=== PATIENT | male | born 1950 | race Caucasian/White ===

== ENCOUNTER 2019-12-15 11:53 | Observation (INO) | payer MEDICARE, BC ==
[2019-12-15] MEDS ORDERED: Sodium Chloride 0.9% 10 ML Syringe FLUSH PRN (12:25)
[2019-12-15] MEDS ORDERED: Atropine 0.1 MG/ML 10 ML Syringe IVPUSH PRN (12:33)
[2019-12-15] MEDS ORDERED: EPINEPHrine 1:10,000 1 MG/10 ML Syringe IVPUSH PRN (12:33)
[2019-12-15] MEDS ORDERED: Nitroglycerin 0.4 MG Tab.SL SL PRN (12:33)
[2019-12-15] MEDS ORDERED: Lidocaine 2% 100 MG/5 ML Syringe IVPUSH PRN (12:33)
--- NOTE | 2019-12-15 13:04 | CR ---
[id number] RAD/RAD Chest PA And Lateral EXAM: RAD Chest PA And Lateral INDICATION: CHEST PAIN, RULE OUT AK. COMPARISON: None. DISCUSSION: Cardiomediastinal silhouette is normal in size and contour. No infiltrate, effusion, pneumothorax, or edema. IMPRESSION: No acute cardiopulmonary abnormality. Vipul Sauceda DO 12/15/19 [id number] Thank you for allowing us to participate in the care of your patient.
[2019-12-15 13:42] LABS: ANION GAP 17.6 mmol/L (5-15); CHLORIDE,CL 103 mmol/L (98-115); SODIUM,NA 142 mmol/L (136-145)
[2019-12-15] MEDS ORDERED: Acetaminophen 500 MG Tab PO PRN (18:02)
[2019-12-15] MEDS: Escitalopram 10 MG Tab PO SCH (20:41)
[2019-12-16] MEDS: Hydrochlorothiazide 12.5 MG Cap PO SCH (08:02)
[2019-12-16] MEDS: Pantoprazole 40 MG Tab.CR PO SCH (08:02)
[2019-12-16] MEDS: Lisinopril 20 MG Tab PO SCH (08:02)
[2019-12-16] MEDS ORDERED: Ketorolac 30 MG/ML SDV IVPUSH ONE (12:21)
[2019-12-16] MEDS ORDERED: Nitroglycerin 2% Oint 1 GM UD Packet TOP ONE (14:00)
[2019-12-16] MEDS: Isosorbide Mononitrate 30 MG Tab.ER PO SCH (14:23)
[2019-12-16] MEDS ORDERED: Nitroglycerin 2% Oint 1 GM UD Packet TOP SCH (20:30)
[2019-12-16] MEDS: Escitalopram 10 MG Tab PO SCH (21:34)
[2019-12-17] MEDS: Nitroglycerin 2% Oint 1 GM UD Packet TOP SCH ×2 (03:43→09:38)
[2019-12-17] MEDS: Lisinopril 20 MG Tab PO SCH (09:13)
[2019-12-17] MEDS: Isosorbide Mononitrate 30 MG Tab.ER PO SCH (09:13)
[2019-12-17] MEDS: Pantoprazole 40 MG Tab.CR PO SCH (09:13)
[2019-12-17] MEDS: Hydrochlorothiazide 12.5 MG Cap PO SCH (09:13)
--- NOTE | 2019-12-17 09:25 | PCM.PN ---
- General Info Date of Service: 12/16/19 Functional Status: Reports: Tolerating Diet, Ambulating, Urinating. Denies: Pain Controlled, New Symptoms - Review of Systems General: Denies: Fever, Weakness, Fatigue HEENT: Reports: No Symptoms Pulmonary: Reports: No Symptoms Cardiovascular: Reports: Chest Pain, Orthopnea. Denies: Palpitations, Dyspnea on Exertion, PND, Edema, Lightheadedness Gastrointestinal: Reports: No Symptoms Genitourinary: Reports: No Symptoms Musculoskeletal: Reports: No Symptoms Skin: Reports: No Symptoms Neurological: Reports: No Symptoms Psychiatric: Reports: No Symptoms - Patient Data Vitals - Most Recent: Last Vital Signs Temp 96.8 F 12/17/19 06:57 Pulse 71 12/17/19 06:57 Resp 16 12/17/19 06:57 BP 135/64 12/17/19 09:13 Pulse Ox 95 12/17/19 06:57 Weight - Most Recent: 223 lb 9.6 oz I&O - Last 24 Hours: Intake & Output 12/16/19 12/17/19 12/17/19 22:59 06:59 14:59 Intake Total 200 100 Balance 200 100 Lab Results Last 24 Hours: Laboratory Results - last 24 hr 12/16/19 Range/Units 07:08 Triglycerides 98 (30-150) mg/dL Cholesterol 187 (100-199) mg/dL LDL Cholesterol, Calc 122 H (0-100) mg/dL HDL Cholesterol 45 (40-60) mg/dL Med Orders - Current: Current Medications Acetaminophen (Tylenol Extra Strength) 1,000 mg PO BID PRN PRN Reason: Pain Atropine Sulfate (Atropine 0.1 Mg/Ml) 0 mg IVPUSH ASDIRECTED PRN PRN Reason: Heart. Dapsone (Dapsone) 150 mg PO DAILY [facility] Last Admin: 12/16/19 08:07 Dose: Not Given Epinephrine HCl (Epinephrine 1:10,000) 1 mg IVPUSH ASDIRECTED PRN PRN Reason: Heart. Escitalopram Oxalate (Lexapro) 10 mg PO BEDTIME [facility] Last Admin: 12/16/19 21:34 Dose: 10 mg Hydrochlorothiazide (Hydrochlorothiazide) 12.5 mg PO DAILY [facility] Last Admin: 12/17/19 09:13 Dose: 12.5 mg Isosorbide Mononitrate (Imdur) 60 mg PO DAILY [facility] Last Admin: 12/17/19 09:13 Dose: 60 mg Lidocaine HCl (Xylocaine 2%) 0 mg IVPUSH ASDIRECTED PRN PRN Reason: Heart. Lisinopril (Prinivil) 20 mg PO DAILY [facility] Last Admin: 12/17/19 09:13 Dose: 20 mg Nebivolol (Bystolic) 5 mg PO DAILY [facility] Last Admin: 12/16/19 08:07 Dose: Not Given Nitroglycerin (Nitrostat) 0.4 mg SL ASDIRECTED PRN PRN Reason: Heart. Last Admin: 12/16/19 09:13 Dose: 0.4 mg Nitroglycerin (Nitro-Bid 2%) 1 gm TOP Q6H [facility] Last Admin: 12/17/19 03:43 Dose: 1 gm Pantoprazole Sodium (Protonix) 40 mg PO DAILY [facility] Last Admin: 12/17/19 09:13 Dose: 40 mg Sodium Chloride (Saline Flush) 10 ml FLUSH Q8HR PRN PRN Reason: keep vein open Last Admin: 12/16/19 08:04 Dose: 10 ml Discontinued Medications Ketorolac Tromethamine (Toradol) 15 mg IVPUSH ONETIME ONE Stop: 12/16/19 12:22 Last Admin: 12/16/19 12:35 Dose: 15 mg Nitroglycerin (Nitro-Bid 2%) 1 gm TOP ONETIME ONE Stop: 12/16/19 14:01 Last Admin: 12/16/19 14:23 Dose: 1 gm Nitroglycerin (Nitro-Bid 2%) 1 gm TOP Q6H [facility] Last Admin: 12/16/19 21:34 Dose: 1 gm - Exam Quality Assessment: No: Supplemental Oxygen General: Alert, Oriented, Cooperative, No Acute Distress Neck: No JVD Lungs: Clear to Auscultation, Normal Respiratory Effort, Other (reproducible chest wall pain. ). No: Crackles Cardiovascular: Regular Rate, Regular Rhythm GI/Abdominal Exam: Soft (Male) Exam: Deferred Back Exam: No: CVA Tenderness (L), CVA Tenderness (R) Extremities: No Pedal Edema Peripheral Pulses: 2+: Radial (L), Radial (R) Skin: Warm, Dry, Intact Psy/Mental Status: Alert, Normal Affect, Normal Mood. No: Depressed Sepsis Event Note - Evaluation Sepsis Screening Result: No Definite Risk - Focused Exam Vital Signs: Vital Signs Temp Pulse Resp BP BP BP Pulse Ox 12/17/19 09:13 135/64 12/17/19 06:57 96.8 F 71 16 123/65 95 12/17/19 03:00 96.8 F 64 16 111/62 96 12/16/19 22:50 96.7 F 61 20 109/61 94 L Date Exam was Performed: 12/17/19 Time Exam was Performed: 10:04 - Problem List Review Problem List Initiated/Reviewed/Updated: Yes - My Orders Last 24 Hours: My Active Orders 12/16/19 09:00 Dapsone 150 mg PO DAILY Nebivolol [Bystolic] 5 mg PO DAILY Pantoprazole [ProTONIX] 40 mg PO DAILY hydroCHLOROthiazide 12.5 mg PO DAILY lisinopriL [Prinivil] 20 mg PO DAILY 12/16/19 14:00 Isosorbide Mononitrate [Imdur] 60 mg PO DAILY 12/17/19 03:00 Nitroglycerin [Nitro-Bid 2%] 1 gm TOP Q6H 12/17/19 09:19 Ready for Discharge [RC] PER UNIT ROUTINE - Plan Plan:: History summary A pleasant 69-year-old obese gentleman was admitted by Gail Castañeda NP from an [facility] when he had came in due to slightly elevated blood pressure at 168 systolically along with 2 to 3-day history of dull 2/10 substernal/anterior nonradiating chest wall pain. Does admit he had been more active exertionally lately moving snow likely contributable. He has no significant cardiac history other than hyperlipidemia and hypertension and back in June he was discontinued from his ELEN inhibitor/HCTZ to what he says "they said it was hard on my kidneys" and subsequently placed on 5 mg Bystolic. PPI therapy at one point he thought it was GERD-like symptoms. non Smoker. EKG clinic was reviewed by myself no ST morphology QTC <400. Nitro 0.4 SL given x 1 dose with relief of symptoms. ASA 324mg chewable given x 1. Primary Hospital problems Chest pain, likely MSK, Toradol Rule out MO, this has been ruled out, Hypertension, increase Bystolic to 10 mg daily Disposition/overall plan --Continue observation stay --Increase Bystolic, Toradol, continue with telemetry, ambulate in halls, lipids --Although muscular skeletal related, likely could benefit from cardiology referral, C/S placed. --MHS score 2; doubtful of limited flow disease, however he does have an intermediate risk factors of CAD and may likely benefit from outpatient stress testing
--- NOTE | 2019-12-17 10:04 | PCM.DCSUM1 ---
Discharge Summary - Hospital Course Diagnosis: Stroke: No - Discharge Data Discharge Date: 12/17/19 Discharge Disposition: Home, Self-Care 01 Condition: Good - Referral to Home Health Primary Care Physician: PCP Not In Area - Patient Instructions Diet: Heart Healthy Diet Activity: As Tolerated, No Lifting Over 20 Pounds, No Strenuous Activities Driving: May Drive Today Showering/Bathing: March Shower Notify Provider of: Increased Pain - Discharge Plan *PRESCRIPTION DRUG MONITORING PROGRAM REVIEWED*: Not Applicable *COPY OF PRESCRIPTION DRUG MONITORING REPORT IN PATIENT [facility]: Not Applicable Prescriptions/Med Rec: Aspirin [Adult Low Dose Aspirin EC] 81 mg PO DAILY #30 tablet. Nebivolol HCl [Bystolic] 10 mg PO DAILY #30 tablet Home Medications: Home Meds Acetaminophen 1,000 mg PO BID PRN 12/15/19 [History] Dapsone 150 mg PO DAILY 12/15/19 [History] Escitalopram [Lexapro] 10 mg PO BEDTIME 12/15/19 [History] L.acidoph,Paracasei, B.lactis [Probiotic] 2 cap DAILY 12/15/19 [History] Lisinopril/Hydrochlorothiazide [Zestoretic 20-12.5 mg Tablet] 1 each PO DAILY [History] Pantoprazole [ProTONIX] 40 mg PO DAILY 12/15/19 [History] Nebivolol HCl [Bystolic] 10 mg PO DAILY #30 tablet 12/16/19 [Rx] Aspirin [Adult Low Dose Aspirin EC] 81 mg PO DAILY #30 tablet. 12/17/19 [Rx] Referrals: Gail Castañeda TRANSPORT OPERATIONS INSPECTOR [Nurse Practitioner] - (Next week or at anybody else in [place]) - Discharge Summary/Plan Comment DC Time >30 min.: Yes Discharge Summary/Plan Comment: Final diagnosis Chest wall pain, musculoskeletal etiology Hypertension, suboptimal Obesity, History summary 69-year-old obese gentleman was admitted by Gail Castañeda NP from an [facility] when he had came in due to slightly elevated blood pressure at 168 systolically along with 2 to 3-day history of dull 2/10 substernal/anterior nonradiating chest wall pain. Does admit he had been more active exertionally lately moving snow likely contributable. He has no significant cardiac history other than hyperlipidemia and hypertension and back in June he was discontinued from his ELEN inhibitor/HCTZ to what he says "they said it was hard on my kidneys" and subsequently placed on 5 mg Bystolic. PPI therapy at one point he thought it was GERD-like symptoms. non Smoker. EKG clinic was reviewed by myself no ST morphology QTC <400. Prehospital medication included nitro 0.4 SL given x 1 dose with relief of symptoms. ASA 324mg chewable given x 1. Hospital course Patient was placed on telemetry, no ST morphology noted, all cardio biomarkers were normal, have dull 2-3 reproducible chest wall pain in which ketorolac was given with resolution. He was ambulated aggressively in the can prior to discharge no shortness of breath no chest pain. Blood pressure normalized with increased dose of Bystolic. Lipids: LDL 122 HDL 45 CHO 187 Triglycerides 98 Medication changes/adjustments upon discharge --Bystolic increase from 5 mg to 10 mg p.o. daily --ASA 81 mg daily for primary CVD prevention (likely short-term) Disposition/overall plan --Discharge from observation to self-long-term --Follow-up in [facility], specific instructions were given regarding diet, activity level, --MHS score 2; doubtful of limited flow disease, however he does have an intermediate risk factors of CAD and may likely benefit from outpatient stress testing --Cardiology C/S placed in [facility]> --Follow-up provider to consider statin therapy - General Info Functional Status: Reports: Pain Controlled - Review of Systems General: Reports: No Symptoms HEENT: Reports: No Symptoms Pulmonary: Reports: No Symptoms Cardiovascular: Reports: No Symptoms Gastrointestinal: Reports: No Symptoms Genitourinary: Reports: No Symptoms Musculoskeletal: Reports: No Symptoms Skin: Reports: No Symptoms Neurological: Reports: No Symptoms Psychiatric: Reports: No Symptoms - Patient Data Vitals - Most Recent: Last Vital Signs Temp 96.8 F 12/17/19 06:57 Pulse 71 12/17/19 06:57 Resp 16 12/17/19 06:57 BP 135/64 12/17/19 09:13 Pulse Ox 95 12/17/19 06:57 Weight - Most Recent: 223 lb 9.6 oz I&O - Last 24 hours: Intake & Output 12/16/19 12/17/19 12/17/19 22:59 06:59 14:59 Intake Total 200 100 Balance 200 100 Lab Results - Last 24 hrs: Laboratory Results - last 24 hr 12/16/19 Range/Units 07:08 Triglycerides 98 (30-150) mg/dL Cholesterol 187 (100-199) mg/dL LDL Cholesterol, Calc 122 H (0-100) mg/dL HDL Cholesterol 45 (40-60) mg/dL Med Orders - Current: Current Medications Acetaminophen (Tylenol Extra Strength) 1,000 mg PO BID PRN PRN Reason: Pain Atropine Sulfate (Atropine 0.1 Mg/Ml) 0 mg IVPUSH ASDIRECTED PRN PRN Reason: Heart. Dapsone (Dapsone) 150 mg PO DAILY [facility] Last Admin: 12/16/19 08:07 Dose: Not Given Epinephrine HCl (Epinephrine 1:10,000) 1 mg IVPUSH ASDIRECTED PRN PRN Reason: Heart. Escitalopram Oxalate (Lexapro) 10 mg PO BEDTIME [facility] Last Admin: 12/16/19 21:34 Dose: 10 mg Hydrochlorothiazide (Hydrochlorothiazide) 12.5 mg PO DAILY [facility] Last Admin: 12/17/19 09:13 Dose: 12.5 mg Isosorbide Mononitrate (Imdur) 60 mg PO DAILY [facility] Last Admin: 12/17/19 09:13 Dose: 60 mg Lidocaine HCl (Xylocaine 2%) 0 mg IVPUSH ASDIRECTED PRN PRN Reason: Heart. Lisinopril (Prinivil) 20 mg PO DAILY [facility] Last Admin: 12/17/19 09:13 Dose: 20 mg Nebivolol (Bystolic) 5 mg PO DAILY [facility] Last Admin: 12/16/19 08:07 Dose: Not Given Nitroglycerin (Nitrostat) 0.4 mg SL ASDIRECTED PRN PRN Reason: Heart. Last Admin: 12/16/19 09:13 Dose: 0.4 mg Nitroglycerin (Nitro-Bid 2%) 1 gm TOP Q6H [facility] Last Admin: 12/17/19 09:38 Dose: 1 gm Pantoprazole Sodium (Protonix) 40 mg PO DAILY [facility] Last Admin: 12/17/19 09:13 Dose: 40 mg Sodium Chloride (Saline Flush) 10 ml FLUSH Q8HR PRN PRN Reason: keep vein open Last Admin: 12/16/19 08:04 Dose: 10 ml Discontinued Medications Ketorolac Tromethamine (Toradol) 15 mg IVPUSH ONETIME ONE Stop: 12/16/19 12:22 Last Admin: 12/16/19 12:35 Dose: 15 mg Nitroglycerin (Nitro-Bid 2%) 1 gm TOP ONETIME ONE Stop: 12/16/19 14:01 Last Admin: 12/16/19 14:23 Dose: 1 gm Nitroglycerin (Nitro-Bid 2%) 1 gm TOP Q6H [facility] Last Admin: 12/16/19 21:34 Dose: 1 gm - Exam General: Reports: Alert, Oriented Neck: Reports: Supple Lungs: Reports: Clear to Auscultation, Normal Respiratory Effort Cardiovascular: Reports: Regular Rate, Regular Rhythm GI/Abdominal Exam: Normal Bowel Sounds, Soft Extremities: No Pedal Edema Psy/Mental Status: Reports: Alert, Normal Affect, Normal Mood
== END 2019-12-17 11:15 | disposition home or self-care (01) ==
LOC: KA.MS 11:59
PROVIDERS: ADMIT Nurse Practitioner Family; ATTEND Nurse Practitioner Family
DX: R07.2 Precordial pain (principal); I10 Essential (primary) hypertension; E78.00 Pure hypercholesterolemia, unspecified; K21.9 Gastro-esophageal reflux disease without esophagitis; M10.9 Gout, unspecified; E78.5 Hyperlipidemia, unspecified; M19.90 Unspecified osteoarthritis, unspecified site; Z88.8 Allergy status to other drugs, medicaments and biological substances; Z88.0 Allergy status to penicillin; Z91.040 Latex allergy status; Z91.018 Allergy to other foods; Z79.899 Other long term (current) drug therapy
CPT/HCPCS: 36415; 71046; 80053; 80061; 82553; 84484; 85025; 96374; A9270-GY; G0378; J1885

== ENCOUNTER 2021-01-31 19:30 | Emergency (ER) | payer MEDICARE, BC ==
[2021-01-31] MEDS ORDERED: Ketorolac 60 MG/2 ML SDV IM ONE (20:14)
--- NOTE | 2021-01-31 20:14 | EDM.PDOC ---
ED HPI GENERAL MEDICAL PROBLEM - General Chief Complaint: General Stated Complaint: BILATERAL FOOT PAIN Time Seen by Provider: 01/31/21 19:45 Source of Information: Reports: Patient History Limitations: Reports: No Limitations - History of Present Illness INITIAL COMMENTS - FREE TEXT/NARRATIVE: 70 YO WM PRESENTS TO ER COMPLAINING OF BILATERAL FOOT PAIN WHICH BEGAN YESTERDAY. PT WAS SEEN IN THE CLINIC TODAY AND DIAGNOSED WITH GOUT. PT WAS SENT HOME ON PREDNISONE AND ALLOPURINOL BUT STATES HE DIDN'T TAKE EITHER MEDICATIONS. PT REPORTS POSSIBLE ALLERGY TO ALLOPURINOL (RASH) IN THE PAST. PT STATES HE FORGOT TO TAKE HIS PREDNISONE. PT STATES RIGHT FOOT IS WORSE THAN LEFT FOOT. PT WITH DIFFICULTY AMBULATING DUE TO PAIN. PT REPORTS SWELLING AND WARMTH TO FEET BILATERALLY. PT DENIES FEVER/CHILLS, NO KNOWN INJURY, OR REDNESS TO FEET NOTED. PT ESSENTIALLY HERE FOR PAIN MEDICATION. Onset Date: 01/30/21 Duration: Day(s): (2) Location: Reports: Lower Extremity, Left, Lower Extremity, Right Quality: Reports: Ache Severity: Moderate Improves with: Reports: Rest Worsens with: Reports: Movement Associated Symptoms: Reports: No Other Symptoms. Denies: Fever/Chills, Weakness bilater. feet Pain Score (Numeric/FACES): 6 - Related Data Allergies Allergy/AdvReac Type Severity Reaction Status Date / Time allopurinol Allergy Other Verified 12/15/19 13:28 gluten Allergy Other Verified 12/15/19 13:28 latex Allergy Other Verified 12/15/19 13:28 Penicillins Allergy Other Verified 12/15/19 13:28 Home Meds: Home Meds Acetaminophen 1,000 mg PO BID PRN 12/15/19 [History] Dapsone 150 mg PO DAILY 12/15/19 [History] Escitalopram [Lexapro] 10 mg PO BEDTIME 12/15/19 [History] L.acidoph,Paracasei, B.lactis [Probiotic] 2 cap DAILY 12/15/19 [History] Lisinopril/Hydrochlorothiazide [Zestoretic 20-12.5 mg Tablet] 1 each PO DAILY 12/15/19 [History] Pantoprazole [ProTONIX] 40 mg PO DAILY 12/15/19 [History] Nebivolol HCl [Bystolic] 10 mg PO DAILY #30 tablet 01/22/20 [Rx] Aspirin [Adult Low Dose Aspirin EC] 81 mg PO DAILY #30 tablet. 12/17/19 [Rx] traMADol [Ultram] 50 mg PO Q6H PRN #15 tab 01/31/21 [Rx] Past Medical History HEENT History: Reports: Impaired Vision Cardiovascular History: Reports: Hypertension Gastrointestinal History: Reports: Celiac Disease Musculoskeletal History: Reports: Arthritis, Gout Psychiatric History: Reports: Depression Endocrine/Metabolic History: Reports: Obesity/BMI 30+ Dermatologic History: Reports: Eczema, Other (See Below) Other Dermatologic History: scabs r/t celiac - Infectious Disease History Infectious Disease History: Reports: Chicken Pox, Measles - Past Surgical History GI Surgical History: Reports: Appendectomy Musculoskeletal Surgical History: Reports: Carpal Tunnel, Other (See Below) Other Musculoskeletal Surgeries/Procedures:: R rotator cuff, mihir carpal tunnel Social & Family History - Tobacco Use Tobacco Use Status *Q: Never Tobacco User - Caffeine Use Caffeine Use: Reports: Soda - Alcohol Use Days Per Week of Alcohol Use: 2 Number of Drinks Per Day: 1 Total Drinks Per Week: 2 - Recreational Drug Use Recreational Drug Use: No ED ROS GENERAL - Review of Systems Review Of Systems: See Below Constitutional: Reports: No Symptoms HEENT: Reports: No Symptoms Respiratory: Reports: No Symptoms Cardiovascular: Reports: No Symptoms Endocrine: Reports: No Symptoms GI/Abdominal: Reports: No Symptoms : Reports: No Symptoms Musculoskeletal: Reports: Foot Pain Skin: Reports: No Symptoms Neurological: Reports: No Symptoms Psychiatric: Reports: No Symptoms Hematologic/Lymphatic: Reports: No Symptoms Immunologic: Reports: No Symptoms ED EXAM, GENERAL - Physical Exam Exam: See Below Exam Limited By: No Limitations General Appearance: Alert, WD/WN, No Apparent Distress Head: Atraumatic, Normocephalic Neck: Normal Inspection, Supple, Non-Tender, Full Range of Motion Respiratory/Chest: No Respiratory Distress, Lungs Clear, Normal Breath Sounds, No Accessory Muscle Use, Chest Non-Tender Cardiovascular: Normal Peripheral Pulses, Regular Rate, Rhythm, No Edema, No Gallop, No JVD, No Murmur, No Rub GI/Abdominal: Normal Bowel Sounds, Soft, Non-Tender, No Organomegaly, No Distention, No Abnormal Bruit, No Mass Back Exam: Normal Inspection, Full Range of Motion, NT Extremities: Joint Swelling, Increased Warmth (RIGHT GREAT TOE) Neurological: Alert, Oriented, CN II-XII Intact, Normal Cognition, No Motor/Sensory Deficits Psychiatric: Normal Affect, Normal Mood Skin Exam: Warm, Dry, Intact, Normal Color, No Rash Course - Vital Signs Last Recorded V/S: Last Vital Signs Temp 98.3 F 01/31/21 19:34 Pulse 97 01/31/21 19:34 Resp 14 01/31/21 19:34 BP 149/66 H 01/31/21 19:34 Pulse Ox 95 01/31/21 19:34 Departure - Departure Time of Disposition: 20:23 Disposition: Home, Self-Care 01 Condition: Good Clinical Impression: Gout attack Qualifiers: Gout site: foot Encounter type: initial encounter Laterality: unspecified laterality - Discharge Information Prescriptions: traMADol [Ultram] 50 mg PO Q6H PRN #15 tab PRN Reason: Pain Instructions: Low-Purine Eating Plan Referrals: Hussain Pollard MD [Primary Care Provider] - Additional Instructions: 1. DISCHARGE HOME 2. ULTRAM 50MG 1-2 TABLETS EVERY 6 HOURS NEEDED FOR PAIN 3. START HOME PREDNISONE 40MG DAILY 4. TYLENOL 1000MG EVERY 6 HOURS NEEDED FOR PAIN 5. USE WALKER AT HOME TO AVOID FALLING 6. FOLLOW UP WITH PCP FOR FURTHER EVALUATION AND TREATMENT NEEDED 7. RETURN TO ER FOR WORSENING SYMPTOMS Sepsis Event Note (ED) - Evaluation Sepsis Screening Result: No Definite Risk - Focused Exam Vital Signs: Vital Signs Temp Pulse Resp BP Pulse Ox 01/31/21 19:34 98.3 F 97 14 149/66 H 95 - Assessment/Plan Assessment:: 1. ACUTE GOUTY ARTHRITIS OF GREAT [id number] Plan: 1. DISCHARGE HOME 2. ULTRAM 50MG 1-2 TABLETS EVERY 6 HOURS NEEDED FOR PAIN 3. START HOME PREDNISONE 40MG DAILY 4. TYLENOL 1000MG EVERY 6 HOURS NEEDED FOR PAIN 5. USE WALKER AT HOME TO AVOID FALLING 6. FOLLOW UP WITH PCP FOR FURTHER EVALUATION AND TREATMENT NEEDED 7. RETURN TO ER FOR WORSENING SYMPTOMS
== END 2021-01-31 20:35 | disposition home or self-care (01) ==
LOC: KA.ED 19:30
DX: M10.9 Gout, unspecified (principal); I10 Essential (primary) hypertension; E66.9 Obesity, unspecified; Z68.32 Body mass index [BMI] 32.0-32.9, adult; Z88.0 Allergy status to penicillin; Z88.8 Allergy status to other drugs, medicaments and biological substances; Z91.040 Latex allergy status; Z91.018 Allergy to other foods; Z79.899 Other long term (current) drug therapy; Z79.82 Long term (current) use of aspirin
CPT/HCPCS: 96372; 99283; J1885

== ENCOUNTER 2022-12-17 00:23 | Emergency (ER) | payer BC, MEDICARE ==
[2022-12-17] MEDS ORDERED: Sodium Chloride 0.9% 10 ML Syringe FLUSH PRN (00:53)
[2022-12-17] MEDS ORDERED: Nitroglycerin 2% Oint 1 GM UD Packet TOP ONE (01:09)
[2022-12-17] MEDS ORDERED: Aspirin 81 MG Tab.Chew PO ONE (01:09)
[2022-12-17 01:14] LABS: ANION GAP 11.8 mmol/L (5-15)
[2022-12-17] MEDS ORDERED: Labetalol 100 MG/20 ML MDV IVPUSH ONE (01:23)
== END 2022-12-17 05:30 | disposition home or self-care (01) ==
LOC: KA.ED 00:23
DX: R07.9 Chest pain, unspecified (principal); I16.0 Hypertensive urgency; I10 Essential (primary) hypertension; E66.9 Obesity, unspecified; Z68.30 Body mass index [BMI] 30.0-30.9, adult; Z91.018 Allergy to other foods; Z91.040 Latex allergy status; Z88.0 Allergy status to penicillin; Z88.8 Allergy status to other drugs, medicaments and biological substances; Z79.899 Other long term (current) drug therapy; Z90.49 Acquired absence of other specified parts of digestive tract
CPT/HCPCS: 36415; 71045; 80053; 84484; 85025; 93005; 93010; 96374; 99284; 99285-25; A9270-GY; J3490

== ENCOUNTER 2023-01-01 18:28 | Emergency (ER) | payer MEDICARE ==
[2023-01-01] MEDS ORDERED: Sodium Chloride 0.9% 10 ML Syringe FLUSH PRN (18:43)
[2023-01-01] MEDS: Aspirin 81 MG Tab.Chew PO ONE (18:47)
[2023-01-01 19:00] LABS: ANION GAP 13.8 mmol/L (5-15)
[2023-01-01 19:31] LABS: RESPIRATORY SYNCYTIAL VIR NAA NEGATIVE (NEGATIVE)
[2023-01-01 19:32] LABS: CORONAVIRUS COVID-19 NAA NEGATIVE (NEGATIVE)
[2023-01-01] MEDS: Alum Hydrox/Mag Hydrox/Simeth 30 ML, Lidocaine 2% 15 ML PO ONE ×2 (20:16)
[2023-01-01 20:45] VITALS: BP 142/66; PULSE 64
== END 2023-01-01 21:00 | disposition home or self-care (01) ==
LOC: KA.ED 18:28
DX: K21.9 Gastro-esophageal reflux disease without esophagitis (principal); E78.00 Pure hypercholesterolemia, unspecified; I10 Essential (primary) hypertension; M10.9 Gout, unspecified; E66.9 Obesity, unspecified; Z68.39 Body mass index [BMI] 39.0-39.9, adult; Z88.0 Allergy status to penicillin; Z91.040 Latex allergy status; Z91.018 Allergy to other foods; Z79.82 Long term (current) use of aspirin; Z79.899 Other long term (current) drug therapy; Z20.822 Contact with and (suspected) exposure to COVID-19
CPT/HCPCS: 0241U; 36415; 71045; 80053; 84484; 85025; 93005; 93010; 99284; 99285; A9270-GY

== ENCOUNTER 2023-01-04 11:31 | Emergency (ER) | payer MEDICARE ==
[2023-01-04] MEDS ORDERED: Sodium Chloride 0.9% 10 ML Syringe FLUSH PRN (11:45)
[2023-01-04 12:12] LABS: ANION GAP 12.3 mmol/L (5-15); CHLORIDE,CL 107 mmol/L (98-107); SODIUM,NA 143 mmol/L (136-145)
[2023-01-04 12:14] LABS: ESTIMATED GFR 66 mL/min (>=60)
[2023-01-04 12:34] LABS: BARBITURATE SCREEN,URINE NEGATIVE (NEGATIVE); BENZODIAZEPINES SCREEN,URINE NEGATIVE (NEGATIVE); TCA SCREEN,URINE NEGATIVE (NEGATIVE); THC SCREEN,URINE 50 NG/ML NEGATIVE (NEGATIVE)
== END 2023-01-04 13:48 | disposition home or self-care (01) ==
LOC: KA.ED 11:31
DX: K21.9 Gastro-esophageal reflux disease without esophagitis (principal); D64.9 Anemia, unspecified; R41.3 Other amnesia; E78.00 Pure hypercholesterolemia, unspecified; I10 Essential (primary) hypertension; M10.9 Gout, unspecified; E66.9 Obesity, unspecified; Z88.0 Allergy status to penicillin; Z91.048 Other nonmedicinal substance allergy status; Z88.8 Allergy status to other drugs, medicaments and biological substances; Z91.018 Allergy to other foods; Z79.82 Long term (current) use of aspirin; Z79.899 Other long term (current) drug therapy; Z68.37 Body mass index [BMI] 37.0-37.9, adult
CPT/HCPCS: 70450; 71046; 80053; 80305-QW; 80307; 81001; 82272; 83605; 83880; 84484; 85025; 93005; 93010; 99284; 99285

== ENCOUNTER 2023-06-04 08:06 | Day surgery (SDC) | payer MEDICARE ==
[~2023-06-04 08:06] MED LIST: Sodium Chloride 0.9% 10 ML Syringe FLUSH PRN
[2023-06-04] MEDS: Lactated Ringers 1,000 ML IV SCH (08:54)
[2023-06-04] MEDS ORDERED: Propofol 200 MG/20 ML SDV ONE (09:16)
[2023-06-04] MEDS ORDERED: Midazolam 1 MG/ML 2 ML SDV ONE (09:16)
[2023-06-04] MEDS ORDERED: Glycopyrrolate 0.2 MG/ML SDV ONE (09:17)
[2023-06-04] MEDS ORDERED: Lidocaine 2% 100 MG/5 ML Syringe ONE (09:17)
== END 2023-06-04 12:04 | disposition home or self-care (01) ==
LOC: KA.SDS 08:06
PROVIDERS: ATTEND Family Medicine
DX: D12.5 Benign neoplasm of sigmoid colon (principal); D12.4 Benign neoplasm of descending colon; K29.50 Unspecified chronic gastritis without bleeding; K31.7 Polyp of stomach and duodenum; D64.9 Anemia, unspecified; K64.8 Other hemorrhoids; I10 Essential (primary) hypertension; I25.118 Atherosclerotic heart disease of native coronary artery with other forms of angina pectoris; E78.00 Pure hypercholesterolemia, unspecified; M19.90 Unspecified osteoarthritis, unspecified site; E53.8 Deficiency of other specified B group vitamins; M1A.9XX0 Chronic gout, unspecified, without tophus (tophi); K21.9 Gastro-esophageal reflux disease without esophagitis; L13.0 Dermatitis herpetiformis; K90.0 Celiac disease; F03.B0 Unspecified dementia, moderate, without behavioral disturbance, psychotic disturbance, mood disturbance, and anxiety; Z79.82 Long term (current) use of aspirin; Z79.899 Other long term (current) drug therapy; Z88.0 Allergy status to penicillin; Z91.040 Latex allergy status; Z88.8 Allergy status to other drugs, medicaments and biological substances; Z98.890 Other specified postprocedural states
CPT/HCPCS: J2250; J2704; J3490; J7120

== ENCOUNTER 2023-06-14 12:04 | Inpatient (IN) | payer MEDICARE ==
[2023-06-14] MEDS ORDERED: Sodium Chloride 0.9% 1,000 ML IV ONE (12:52)
[2023-06-14] MEDS ORDERED: Sodium Chloride 0.9% 10 ML Syringe FLUSH PRN (12:55)
[2023-06-14] MEDS ORDERED: Sodium Chloride 0.9% 1,000 ML IV SCH (13:15)
[2023-06-14 15:25] LABS: ANION GAP 10.6 mmol/L (5-15); CALCIUM 8.4 mg/dL (8.7-10.3); CARBON DIOXIDE,CO2 27.4 mmol/L (21.0-32.0); CREATININE 1.42 mg/dL (0.51-1.17); EST CRCL DRUG DOSING (CG) 44.61 mL/min
[2023-06-14] MEDS ORDERED: Nitroglycerin 0.4 MG Tab.SL SL PRN (16:16)
[2023-06-14] MEDS ORDERED: Acetaminophen 500 MG Tab PO PRN (16:16)
[2023-06-14] MEDS ORDERED: Furosemide 40 MG/4 ML VIAL IVPUSH SCH (16:18)
[2023-06-14] MEDS: Melatonin 3 MG Tab PO SCH (20:04)
[2023-06-14] MEDS: Rosuvastatin 10 MG Tab PO SCH (20:04)
[2023-06-15 07:07] LABS: BASOPHILS ABSOLUTE AUTO 0.03 10^3/uL (0.00-0.10); BASOPHILS PERCENT AUTO 0.6 % (0.0-1.0); EOSINOPHILS PERCENT AUTO 6.1 % (1.0-3.0); HEMATOCRIT 35.7 % (40.0-52.0); IMMATURE GRAN ABSOLUTE AUTO 0.01 10^3/uL (0.00-0.50); IMMATURE GRAN PERCENT AUTO 0.2 % (0.0-5.0); LYMPHOCYTES ABSOLUTE AUTO 0.78 10^3/uL (1.00-4.00); MEAN CORPUSCULAR HEMOGLOBIN 33.3 pg (27.0-31.0); MEAN CORPUSCULAR HGB CONC 30.8 g/dL (32.0-36.0); MEAN CORPUSCULAR VOLUME 108.2 fL (82.0-92.0); MEAN PLATELET VOLUME 10.7 fL (7.4-10.4); MONOCYTES PERCENT AUTO 14.3 % (2.0-8.0); NEUTROPHILS ABSOLUTE AUTO 3.06 10^3/uL (2.50-7.00); NEUTROPHILS PERCENT AUTO 62.8 % (50.0-70.0); PLATELET COUNT,PLT 201 10^3/uL (150-400); RED CELL DISTRIBUTION WIDTH 13.2 % (11.5-14.5); WHITE BLOOD CELL COUNT,WBC 4.88 10^3/uL (5.00-10.00)
[2023-06-15 07:30] LABS: ANION GAP 14.3 mmol/L (5-15); CALCIUM 8.7 mg/dL (8.7-10.3); CARBON DIOXIDE,CO2 27.7 mmol/L (21.0-32.0); CREATININE 1.36 mg/dL (0.51-1.17); EST CRCL DRUG DOSING (CG) 46.58 mL/min
[2023-06-15] MEDS: DAPSONE 100 MG PO SCH (08:09)
[2023-06-15] MEDS: Pantoprazole 40 MG Tab.CR PO SCH (08:09)
[2023-06-15] MEDS: Aspirin 81 MG Tab.EC PO SCH (08:09)
[2023-06-15] MEDS: FEBUXOSTAT 40 MG PO SCH (08:10)
[2023-06-15] MEDS: amLODIPine 5 MG Tab PO SCH (08:19)
[2023-06-15] MEDS: Furosemide 20 MG Tab PO SCH (10:26)
[2023-06-15] MEDS: Memantine 10 MG Tab PO SCH (10:26)
[2023-06-15] MEDS: Rosuvastatin 10 MG Tab PO SCH (20:12)
[2023-06-15] MEDS: Melatonin 3 MG Tab PO SCH (20:12)
[2023-06-16 07:23] LABS: CALCIUM 8.7 mg/dL (8.7-10.3); CARBON DIOXIDE,CO2 28.9 mmol/L (21.0-32.0); CREATININE 1.27 mg/dL (0.51-1.17); EST CRCL DRUG DOSING (CG) 49.88 mL/min; POTASSIUM,K 5.9 mmol/L (3.5-5.1)
[2023-06-16] MEDS: Aspirin 81 MG Tab.EC PO SCH (08:04)
[2023-06-16] MEDS: Furosemide 20 MG Tab PO SCH (08:04)
[2023-06-16] MEDS: amLODIPine 5 MG Tab PO SCH (08:04)
[2023-06-16] MEDS: Memantine 10 MG Tab PO SCH (08:04)
[2023-06-16] MEDS: Pantoprazole 40 MG Tab.CR PO SCH (08:04)
[2023-06-16] MEDS: DAPSONE 100 MG PO SCH (08:06)
[2023-06-16] MEDS: FEBUXOSTAT 40 MG PO SCH (08:07)
[2023-06-16] MEDS: Rosuvastatin 10 MG Tab PO SCH (20:20)
[2023-06-16] MEDS: Melatonin 3 MG Tab PO SCH (20:20)
[2023-06-17 07:37] LABS: ANION GAP 15.5 mmol/L (5-15); CALCIUM 8.9 mg/dL (8.7-10.3); CARBON DIOXIDE,CO2 28.3 mmol/L (21.0-32.0); CREATININE 1.29 mg/dL (0.51-1.17); EST CRCL DRUG DOSING (CG) 49.11 mL/min; POTASSIUM,K 4.8 mmol/L (3.5-5.1)
[2023-06-17] MEDS: Furosemide 20 MG Tab PO SCH (08:55)
[2023-06-17] MEDS: Memantine 10 MG Tab PO SCH (08:56)
[2023-06-17] MEDS: Pantoprazole 40 MG Tab.CR PO SCH (08:56)
[2023-06-17] MEDS: Aspirin 81 MG Tab.EC PO SCH (08:57)
[2023-06-17] MEDS: FEBUXOSTAT 40 MG PO SCH (08:58)
[2023-06-17] MEDS: DAPSONE 100 MG PO SCH (08:58)
[2023-06-17] MEDS ORDERED: amLODIPine 5 MG Tab PO SCH (09:00)
== END 2023-06-17 10:38 | disposition home or self-care (01) | DRG 641 ==
LOC: KA.MS 12:04
PROVIDERS: ADMIT Nurse Practitioner Family; ATTEND Family Medicine
DX: E87.5 Hyperkalemia (principal); N18.31 Chronic kidney disease, stage 3a; E86.0 Dehydration; I25.10 Atherosclerotic heart disease of native coronary artery without angina pectoris; F03.90 Unspecified dementia, unspecified severity, without behavioral disturbance, psychotic disturbance, mood disturbance, and anxiety; M10.9 Gout, unspecified; K21.9 Gastro-esophageal reflux disease without esophagitis; E78.5 Hyperlipidemia, unspecified; E53.8 Deficiency of other specified B group vitamins; E78.00 Pure hypercholesterolemia, unspecified; Z79.82 Long term (current) use of aspirin; Z79.899 Other long term (current) drug therapy; Z91.040 Latex allergy status; Z88.0 Allergy status to penicillin; Z90.49 Acquired absence of other specified parts of digestive tract
CPT/HCPCS: 36415; 80048; 85025; A9270-GY; J1940; J7030

== ENCOUNTER 2023-12-23 08:42 | Emergency (ER) | payer MEDICARE ==
[2023-12-23 09:10] LABS: BASOPHILS ABSOLUTE AUTO 0.05 10^3/uL (0.00-0.10); BASOPHILS PERCENT AUTO 0.8 % (0.0-1.0); EOSINOPHILS ABSOLUTE AUTO 0.18 10^3/uL (0.10-0.30); EOSINOPHILS PERCENT AUTO 2.7 % (1.0-3.0); HEMOGLOBIN 12.2 g/dL (13.0-17.0); IMMATURE GRAN ABSOLUTE AUTO 0.02 10^3/uL (0.00-0.50); IMMATURE GRAN PERCENT AUTO 0.3 % (0.0-5.0); LYMPHOCYTES ABSOLUTE AUTO 0.94 10^3/uL (1.00-4.00); LYMPHOCYTES PERCENT AUTO 14.3 % (20.0-40.0); MEAN CORPUSCULAR HEMOGLOBIN 33.2 pg (27.0-31.0); MEAN CORPUSCULAR HGB CONC 32.1 g/dL (32.0-36.0); MEAN CORPUSCULAR VOLUME 103.5 fL (82.0-92.0); MEAN PLATELET VOLUME 9.9 fL (7.4-10.4); MONOCYTES ABSOLUTE AUTO 0.87 10^3/uL (0.10-0.80); MONOCYTES PERCENT AUTO 13.2 % (2.0-8.0); NEUTROPHILS ABSOLUTE AUTO 4.51 10^3/uL (2.50-7.00); NEUTROPHILS PERCENT AUTO 68.7 % (50.0-70.0); PLATELET COUNT,PLT 208 10^3/uL (150-400); RED BLOOD CELL COUNT 3.67 10^6/uL (4.50-6.00); RED CELL DISTRIBUTION WIDTH 13.2 % (11.5-14.5); WHITE BLOOD CELL COUNT,WBC 6.57 10^3/uL (5.00-10.00)
[2023-12-23 09:34] LABS: ALBUMIN 3.83 g/dL (3.40-5.00); ANION GAP 14.2 mmol/L (5-15); BILIRUBIN TOTAL 0.5 mg/dL (0.2-1.0); CALCIUM 8.6 mg/dL (8.7-10.3); CARBON DIOXIDE,CO2 28.6 mmol/L (21.0-32.0); CREATININE 1.13 mg/dL (0.51-1.17); EST CRCL DRUG DOSING (CG) 55.25 mL/min; POTASSIUM,K 3.8 mmol/L (3.5-5.1); PROTEIN TOTAL,TP 6.6 g/dL (6.4-8.2)
[2023-12-23 09:57] LABS: AMYLASE 94 U/L (25-125); LIPASE 30 U/L (16-77)
[2023-12-23 10:30] LABS: INFLUENZA A NAA NEGATIVE (NEGATIVE); INFLUENZA B NAA NEGATIVE (NEGATIVE)
[2023-12-23 10:31] LABS: CORONAVIRUS COVID-19 NAA NEGATIVE (NEGATIVE)
== END 2023-12-23 10:55 | disposition home or self-care (01) ==
LOC: KA.ED 08:42
DX: R10.9 Unspecified abdominal pain (principal); R42 Dizziness and giddiness; I10 Essential (primary) hypertension; E78.00 Pure hypercholesterolemia, unspecified; I25.10 Atherosclerotic heart disease of native coronary artery without angina pectoris; M10.9 Gout, unspecified; Z79.82 Long term (current) use of aspirin; Z91.040 Latex allergy status; Z88.0 Allergy status to penicillin; Z91.048 Other nonmedicinal substance allergy status; Z88.8 Allergy status to other drugs, medicaments and biological substances; Z95.5 Presence of coronary angioplasty implant and graft
CPT/HCPCS: 0240U; 36415; 71046; 74021; 80053; 82150; 83690; 83880; 84484; 85025; 93010; 99284

== ENCOUNTER 2024-02-23 12:05 | Emergency (ER) | payer MEDICARE ==
[2024-02-23] MEDS ORDERED: Sodium Chloride 0.9% 10 ML Syringe FLUSH PRN (12:39)
[2024-02-23 12:45] LABS: BASOPHILS ABSOLUTE AUTO 0.02 10^3/uL (0.00-0.10); BASOPHILS PERCENT AUTO 0.3 % (0.0-1.0); EOSINOPHILS ABSOLUTE AUTO 0.15 10^3/uL (0.10-0.30); EOSINOPHILS PERCENT AUTO 2.2 % (1.0-3.0); HEMATOCRIT 36.2 % (40.0-52.0); HEMOGLOBIN 11.6 g/dL (13.0-17.0); IMMATURE GRAN ABSOLUTE AUTO 0.01 10^3/uL (0.00-0.50); IMMATURE GRAN PERCENT AUTO 0.1 % (0.0-5.0); LYMPHOCYTES ABSOLUTE AUTO 1.03 10^3/uL (1.00-4.00); LYMPHOCYTES PERCENT AUTO 15.2 % (20.0-40.0); MEAN CORPUSCULAR HEMOGLOBIN 34.1 pg (27.0-31.0); MEAN CORPUSCULAR VOLUME 106.5 fL (82.0-92.0); MONOCYTES ABSOLUTE AUTO 0.95 10^3/uL (0.10-0.80); MONOCYTES PERCENT AUTO 14.1 % (2.0-8.0); NEUTROPHILS PERCENT AUTO 68.1 % (50.0-70.0); PLATELET COUNT,PLT 212 10^3/uL (150-400); RED CELL DISTRIBUTION WIDTH 13.1 % (11.5-14.5); WHITE BLOOD CELL COUNT,WBC 6.76 10^3/uL (5.00-10.00)
[2024-02-23] MEDS ORDERED: Iopamidol 755 Mg/ML 100 ML Bottle IV ONE (12:50)
[2024-02-23] MEDS ORDERED: Sodium Chloride 0.9% 50 ML IV SCH (13:00)
[2024-02-23] MEDS: Acetaminophen 500 MG Tab PO ONE (13:01)
[2024-02-23] MEDS: Sodium Chloride 0.9% 1,000 ML IV ONE (13:02)
[2024-02-23 13:04] LABS: ALBUMIN 4.07 g/dL (3.40-5.00); ANION GAP 15.7 mmol/L (5-15); BILIRUBIN TOTAL 0.6 mg/dL (0.2-1.0); CARBON DIOXIDE,CO2 27.6 mmol/L (21.0-32.0); CREATININE 1.48 mg/dL (0.51-1.17); EST CRCL DRUG DOSING (CG) 42.18 mL/min; POTASSIUM,K 4.3 mmol/L (3.5-5.1); PROTEIN TOTAL,TP 6.8 g/dL (6.4-8.2)
[2024-02-23] MEDS: Magnesium Citrate Solution 296 ML Bottle PO ONE (14:34)
== END 2024-02-23 15:25 ==
LOC: KA.ED 12:05
DX: K57.32 Diverticulitis of large intestine without perforation or abscess without bleeding (principal); I10 Essential (primary) hypertension; I25.10 Atherosclerotic heart disease of native coronary artery without angina pectoris; Z95.5 Presence of coronary angioplasty implant and graft; K21.9 Gastro-esophageal reflux disease without esophagitis; E66.9 Obesity, unspecified; Z91.040 Latex allergy status; Z88.0 Allergy status to penicillin; Z91.018 Allergy to other foods; Z88.8 Allergy status to other drugs, medicaments and biological substances; Z79.82 Long term (current) use of aspirin; Z79.899 Other long term (current) drug therapy; Z68.37 Body mass index [BMI] 37.0-37.9, adult
CPT/HCPCS: 71045; 74176; 80053; 83605; 83690; 85025; 96360; 96361; 99284; 99285-25; A9270-GY; J7030

== ENCOUNTER 2024-03-23 15:57 | Emergency (ER) | payer MEDICARE ==
[2024-03-23] MEDS: Sodium Chloride 0.9% 10 ML Syringe FLUSH PRN (16:20)
[2024-03-23 16:26] LABS: HEMATOCRIT 36.3 % (40.0-52.0); HEMOGLOBIN 11.6 g/dL (13.0-17.0); MEAN CORPUSCULAR HEMOGLOBIN 33.6 pg (27.0-31.0); MEAN CORPUSCULAR VOLUME 105.2 fL (82.0-92.0); MEAN PLATELET VOLUME 9.9 fL (7.4-10.4); PLATELET COUNT,PLT 230 10^3/uL (150-400); RED BLOOD CELL COUNT 3.45 10^6/uL (4.50-6.00); RED CELL DISTRIBUTION WIDTH 13.2 % (11.5-14.5); WHITE BLOOD CELL COUNT,WBC 8.36 10^3/uL (5.00-10.00)
[2024-03-23 16:44] LABS: ALANINE AMINOTRANSFERASE,ALT 56 U/L (14-63); ALBUMIN 3.44 g/dL (3.40-5.00); ALKALINE PHOSPHATASE 69 U/L (46-116); ANION GAP 12.1 mmol/L (5-15); ASPARTATE AMNIOTRANSFERASE,AST 37 U/L (15-37); BILIRUBIN TOTAL 0.5 mg/dL (0.2-1.0); BLOOD UREA NITROGEN,BUN 25 mg/dL (7-18); CALCIUM 8.5 mg/dL (8.7-10.3); CARBON DIOXIDE,CO2 28.2 mmol/L (21.0-32.0); CHLORIDE,CL 104 mmol/L (98-107); CREATININE 1.23 mg/dL (0.51-1.17); GLUCOSE RANDOM 126 mg/dL (70-140); POTASSIUM,K 4.3 mmol/L (3.5-5.1); PROTEIN TOTAL,TP 6.5 g/dL (6.4-8.2); SODIUM,NA 140 mmol/L (136-145)
[2024-03-23 16:48] LABS: ESTIMATED GFR 62 mL/min (>=60)
[2024-03-23] MEDS: Sodium Chloride 0.9% 50 ML IV SCH (17:16)
[2024-03-23] MEDS: Iopamidol 755 Mg/ML 100 ML Bottle IV ONE (17:16)
[2024-03-23 17:40] LABS: APPEARANCE,URINE CLEAR (CLEAR); BILIRUBIN,URINE NEGATIVE (NEGATIVE); COLOR,URINE YELLOW (YELLOW); GLUCOSE,URINE NEGATIVE (NEGATIVE); KETONES,URINE NEGATIVE (NEGATIVE); LEUKOCYTE ESTERASE,URINE NEGATIVE (NEGATIVE); NITRITE,URINE NEGATIVE (NEGATIVE); OCCULT BLOOD,URINE NEGATIVE (NEGATIVE); PH,URINE 5.5 (5.0-9.0); PROTEIN,URINE TRACE mg/dL (NEGATIVE); UROBILINOGEN,URINE 0.2 E.U./dL (0.2-1.0)
[2024-03-23 17:49] LABS: BACTERIA,URINE OCCASIONAL /HPF (NONE TO FEW); EPITHELIAL CELLS,URINE RARE /LPF; HYALINE CASTS,URINE RARE; MUCUS,URINE RARE /LPF (NEGATIVE); RBC,URINE 0-5 /HPF (0-5); WBC,URINE 0-5 /HPF (0-5)
[2024-03-23] MEDS: Sodium Chloride 0.9% 1,000 ML IV ONE (18:03)
== END 2024-03-23 19:27 | disposition home or self-care (01) ==
LOC: SUPCPDRO 15:57 → KA.ED 15:57
DX: K59.00 Constipation, unspecified (principal); I10 Essential (primary) hypertension; I25.10 Atherosclerotic heart disease of native coronary artery without angina pectoris; E78.00 Pure hypercholesterolemia, unspecified; E66.9 Obesity, unspecified; Z68.34 Body mass index [BMI] 34.0-34.9, adult; Z88.0 Allergy status to penicillin; Z88.8 Allergy status to other drugs, medicaments and biological substances; Z91.048 Other nonmedicinal substance allergy status; Z91.040 Latex allergy status; Z79.82 Long term (current) use of aspirin; Z79.899 Other long term (current) drug therapy; Z90.49 Acquired absence of other specified parts of digestive tract
CPT/HCPCS: 71045; 74177; 80053; 81001; 84484; 85027; 93010; 96360; 99284; 99285-25; J3490; J7030; Q9967

== ENCOUNTER 2024-05-23 11:05 | Emergency (ER) | payer MEDICARE ==
[2024-05-23 11:38] LABS: BASOPHILS ABSOLUTE AUTO 0.03 10^3/uL (0.00-0.10); BASOPHILS PERCENT AUTO 0.4 % (0.0-1.0); EOSINOPHILS ABSOLUTE AUTO 0.27 10^3/uL (0.10-0.30); EOSINOPHILS PERCENT AUTO 3.6 % (1.0-3.0); HEMATOCRIT 36.8 % (40.0-52.0); IMMATURE GRAN ABSOLUTE AUTO 0.01 10^3/uL (0.00-0.50); IMMATURE GRAN PERCENT AUTO 0.1 % (0.0-5.0); LYMPHOCYTES ABSOLUTE AUTO 1.08 10^3/uL (1.00-4.00); LYMPHOCYTES PERCENT AUTO 14.2 % (20.0-40.0); MEAN CORPUSCULAR HEMOGLOBIN 33.8 pg (27.0-31.0); MEAN CORPUSCULAR HGB CONC 32.6 g/dL (32.0-36.0); MEAN CORPUSCULAR VOLUME 103.7 fL (82.0-92.0); MEAN PLATELET VOLUME 11.2 fL (7.4-10.4); MONOCYTES ABSOLUTE AUTO 1.09 10^3/uL (0.10-0.80); MONOCYTES PERCENT AUTO 14.4 % (2.0-8.0); NEUTROPHILS PERCENT AUTO 67.3 % (50.0-70.0); PLATELET COUNT,PLT 207 10^3/uL (150-400); RED BLOOD CELL COUNT 3.55 10^6/uL (4.50-6.00); WHITE BLOOD CELL COUNT,WBC 7.58 10^3/uL (5.00-10.00)
[2024-05-23] MEDS: Aspirin 81 MG Tab.Chew PO ONE (11:40)
[2024-05-23] MEDS: Nitroglycerin 0.4 MG Tab.SL SL PRN (11:42)
[2024-05-23 11:56] LABS: ALBUMIN 3.73 g/dL (3.40-5.00); ANION GAP 16.4 mmol/L (5-15); BILIRUBIN TOTAL 0.5 mg/dL (0.2-1.0); CARBON DIOXIDE,CO2 24.5 mmol/L (21.0-32.0); CREATININE 1.55 mg/dL (0.51-1.17); EST CRCL DRUG DOSING (CG) 40.28 mL/min; POTASSIUM,K 4.9 mmol/L (3.5-5.1); PROTEIN TOTAL,TP 6.8 g/dL (6.4-8.2)
[2024-05-23] MEDS: Ibuprofen 600 MG Tab PO ONE (14:25)
== END 2024-05-23 15:20 | disposition home or self-care (01) ==
LOC: KA.ED 11:05
DX: R07.89 Other chest pain (principal); I12.9 Hypertensive chronic kidney disease with stage 1 through stage 4 chronic kidney disease, or unspecified chronic kidney disease; E78.00 Pure hypercholesterolemia, unspecified; I25.10 Atherosclerotic heart disease of native coronary artery without angina pectoris; K21.9 Gastro-esophageal reflux disease without esophagitis; E66.9 Obesity, unspecified; N18.31 Chronic kidney disease, stage 3a; Z95.5 Presence of coronary angioplasty implant and graft; Z90.49 Acquired absence of other specified parts of digestive tract; Z79.82 Long term (current) use of aspirin; Z79.899 Other long term (current) drug therapy; Z88.0 Allergy status to penicillin; Z91.040 Latex allergy status; Z88.8 Allergy status to other drugs, medicaments and biological substances; Z91.018 Allergy to other foods; Z68.39 Body mass index [BMI] 39.0-39.9, adult
CPT/HCPCS: 36415; 71045; 80053; 84484; 85025; 99285; A9270-GY

== ENCOUNTER 2024-06-27 14:11 | Emergency (ER) | payer MEDICARE ==
[2024-06-27] MEDS ORDERED: Sodium Chloride 0.9% 10 ML Syringe FLUSH PRN (14:20)
[2024-06-27 14:46] LABS: BASOPHILS ABSOLUTE AUTO 0.02 10^3/uL (0.00-0.10); BASOPHILS PERCENT AUTO 0.3 % (0.0-1.0); EOSINOPHILS ABSOLUTE AUTO 0.29 10^3/uL (0.10-0.30); EOSINOPHILS PERCENT AUTO 3.7 % (1.0-3.0); HEMATOCRIT 34.8 % (40.0-52.0); HEMOGLOBIN 11.1 g/dL (13.0-17.0); IMMATURE GRAN ABSOLUTE AUTO 0.03 10^3/uL (0.00-0.50); IMMATURE GRAN PERCENT AUTO 0.4 % (0.0-5.0); LYMPHOCYTES PERCENT AUTO 16.6 % (20.0-40.0); MEAN CORPUSCULAR HEMOGLOBIN 33.6 pg (27.0-31.0); MEAN CORPUSCULAR HGB CONC 31.9 g/dL (32.0-36.0); MEAN CORPUSCULAR VOLUME 105.5 fL (82.0-92.0); MEAN PLATELET VOLUME 10.1 fL (7.4-10.4); MONOCYTES ABSOLUTE AUTO 1.09 10^3/uL (0.10-0.80); NEUTROPHILS ABSOLUTE AUTO 5.08 10^3/uL (2.50-7.00); PLATELET COUNT,PLT 231 10^3/uL (150-400); RED CELL DISTRIBUTION WIDTH 13.8 % (11.5-14.5); WHITE BLOOD CELL COUNT,WBC 7.81 10^3/uL (5.00-10.00)
[2024-06-27 15:03] LABS: ALANINE AMINOTRANSFERASE,ALT 49 U/L (14-63); ALBUMIN 3.85 g/dL (3.40-5.00); ALKALINE PHOSPHATASE 75 U/L (46-116); ANION GAP 15.1 mmol/L (5-15); ASPARTATE AMNIOTRANSFERASE,AST 29 U/L (15-37); BILIRUBIN TOTAL 0.5 mg/dL (0.2-1.0); BLOOD UREA NITROGEN,BUN 33 mg/dL (7-18); CARBON DIOXIDE,CO2 25.4 mmol/L (21.0-32.0); CHLORIDE,CL 105 mmol/L (98-107); CREATININE 1.54 mg/dL (0.51-1.17); GLUCOSE RANDOM 105 mg/dL (70-140); POTASSIUM,K 5.5 mmol/L (3.5-5.1); PROTEIN TOTAL,TP 6.9 g/dL (6.4-8.2); SODIUM,NA 140 mmol/L (136-145)
[2024-06-27 15:04] LABS: B-TYPE NATRIURETIC PEPTIDE,BNP 59 pg/mL (0-100)
[2024-06-27 15:06] LABS: ESTIMATED GFR 48 mL/min (>=60)
[2024-06-27 15:06] LABS: APPEARANCE,URINE CLEAR (CLEAR); BILIRUBIN,URINE NEGATIVE (NEGATIVE); COLOR,URINE YELLOW (YELLOW); GLUCOSE,URINE NEGATIVE (NEGATIVE); KETONES,URINE NEGATIVE (NEGATIVE); LEUKOCYTE ESTERASE,URINE NEGATIVE (NEGATIVE); NITRITE,URINE NEGATIVE (NEGATIVE); OCCULT BLOOD,URINE NEGATIVE (NEGATIVE); PH,URINE 5.5 (5.0-9.0); PROTEIN,URINE NEGATIVE (NEGATIVE); UROBILINOGEN,URINE 0.2 E.U./dL (0.2-1.0)
[2024-06-27] MEDS: Sodium Chloride 0.9% 1,000 ML IV ONE (15:10)
[2024-06-27] MEDS: Ondansetron 4 MG/2 ML SDV IVPUSH ONE (15:12)
== END 2024-06-27 17:25 | disposition home or self-care (01) ==
LOC: KA.ED 14:11
DX: R07.9 Chest pain, unspecified (principal); K21.9 Gastro-esophageal reflux disease without esophagitis; R42 Dizziness and giddiness; D64.9 Anemia, unspecified; F03.B0 Unspecified dementia, moderate, without behavioral disturbance, psychotic disturbance, mood disturbance, and anxiety; G47.30 Sleep apnea, unspecified; I10 Essential (primary) hypertension; I25.10 Atherosclerotic heart disease of native coronary artery without angina pectoris; E78.00 Pure hypercholesterolemia, unspecified; E66.9 Obesity, unspecified; Z90.49 Acquired absence of other specified parts of digestive tract; Z79.899 Other long term (current) drug therapy; Z88.0 Allergy status to penicillin; Z91.040 Latex allergy status; Z91.018 Allergy to other foods; Z88.8 Allergy status to other drugs, medicaments and biological substances; Z68.33 Body mass index [BMI] 33.0-33.9, adult
CPT/HCPCS: 36415; 71045; 80053; 81003; 83880; 84484; 85025; 93010; 96361; 96374; 99284; 99285-25; J2405; J7030

== ENCOUNTER 2025-04-12 14:49 | Inpatient (IN) | payer MEDICARE ==
[2025-04-12 15:21] LABS: BASOPHILS ABSOLUTE AUTO 0.06 10^3/uL (0.00-0.10); BASOPHILS PERCENT AUTO 0.6 % (0.0-1.0); EOSINOPHILS ABSOLUTE AUTO 0.26 10^3/uL (0.10-0.30); EOSINOPHILS PERCENT AUTO 2.8 % (1.0-3.0); HEMATOCRIT 35.6 % (40.0-52.0); IMMATURE GRAN ABSOLUTE AUTO 0.05 10^3/uL (0.00-0.04); IMMATURE GRAN PERCENT AUTO 0.5 % (0.0-0.4); LYMPHOCYTES ABSOLUTE AUTO 1.16 10^3/uL (1.00-4.00); LYMPHOCYTES PERCENT AUTO 12.3 % (20.0-40.0); MEAN CORPUSCULAR HGB CONC 30.9 g/dL (32.0-36.0); MEAN CORPUSCULAR VOLUME 106.9 fL (82.0-92.0); MEAN PLATELET VOLUME 10.2 fL (7.4-10.4); MONOCYTES ABSOLUTE AUTO 1.18 10^3/uL (0.10-0.80); MONOCYTES PERCENT AUTO 12.5 % (2.0-8.0); NEUTROPHILS ABSOLUTE AUTO 6.74 10^3/uL (2.50-7.00); NEUTROPHILS PERCENT AUTO 71.3 % (50.0-70.0); PLATELET COUNT,PLT 282 10^3/uL (150-400); RED BLOOD CELL COUNT 3.33 10^6/uL (4.50-6.00); RED CELL DISTRIBUTION WIDTH 14.6 % (11.5-14.5); WHITE BLOOD CELL COUNT,WBC 9.45 10^3/uL (5.00-10.00)
[2025-04-12 15:31] LABS: APPEARANCE,URINE CLEAR (CLEAR); BILIRUBIN,URINE NEGATIVE (NEGATIVE); COLOR,URINE YELLOW (YELLOW); GLUCOSE,URINE NEGATIVE (NEGATIVE); KETONES,URINE NEGATIVE (NEGATIVE); LEUKOCYTE ESTERASE,URINE NEGATIVE (NEGATIVE); NITRITE,URINE NEGATIVE (NEGATIVE); OCCULT BLOOD,URINE NEGATIVE (NEGATIVE); PROTEIN,URINE NEGATIVE (NEGATIVE); UROBILINOGEN,URINE 0.2 E.U./dL (0.2-1.0)
[2025-04-12 15:39] LABS: ALBUMIN 3.68 g/dL (3.40-5.00); ANION GAP 12.8 mmol/L (5-15); BILIRUBIN TOTAL 0.4 mg/dL (0.2-1.0); C-REACTIVE PROTEIN 0.56 mg/dL (0.00-0.50); CALCIUM 8.7 mg/dL (8.7-10.3); CARBON DIOXIDE,CO2 24.7 mmol/L (21.0-32.0); CREATININE 1.3 mg/dL (0.51-1.17); EST CRCL DRUG DOSING (CG) 45.67 mL/min; POTASSIUM,K 4.5 mmol/L (3.5-5.1); PROTEIN TOTAL,TP 6.8 g/dL (6.4-8.2)
[2025-04-12 15:44] LABS: BACTERIA,URINE RARE /HPF (NONE TO FEW); EPITHELIAL CELLS,URINE NOT SEEN /LPF; GRANULAR CASTS,URINE NOT SEEN; HYALINE CASTS,URINE NOT SEEN; MUCUS,URINE FEW /LPF (NEGATIVE); OTHER CRYSTALS,URINE NOT SEEN /HPF; RBC,URINE 0-5 /HPF (0-5); WBC,URINE 0-5 /HPF (0-5)
[2025-04-12] MEDS ORDERED: oxyCODONE 5 MG Tab PO PRN (16:25)
[2025-04-12] MEDS ORDERED: Ondansetron 4 MG/2 ML SDV IV PRN (16:25)
[2025-04-12] MEDS ORDERED: Acetaminophen 325 MG Tab PO PRN (16:25)
[2025-04-12] MEDS ORDERED: Ondansetron 4 MG Tab.DIS PO PRN (16:25)
[2025-04-12] MEDS ORDERED: Nitroglycerin 0.4 MG Tab.SL SL PRN (17:18)
[2025-04-12] MEDS: Azithromycin 250 MG Tab PO SCH (17:28)
[2025-04-12] MEDS: cefTRIAXone 1 GM Vial IVPUSH SCH (17:29)
[2025-04-12] MEDS: Donepezil 10 MG Tab PO SCH (20:37)
[2025-04-12] MEDS: Rosuvastatin 10 MG Tab PO SCH (20:37)
[2025-04-12] MEDS: Melatonin 3 MG Tab PO PRN (22:45)
[2025-04-13] MEDS: Pantoprazole 40 MG Tab.CR PO SCH (07:30)
[2025-04-13 07:31] LABS: ANION GAP 11.9 mmol/L (5-15); CALCIUM 8.9 mg/dL (8.7-10.3); CARBON DIOXIDE,CO2 26.2 mmol/L (21.0-32.0); CREATININE 1.41 mg/dL (0.51-1.17); EST CRCL DRUG DOSING (CG) 42.11 mL/min; POTASSIUM,K 5.1 mmol/L (3.5-5.1)
[2025-04-13] MEDS: Sertraline 50 MG Tab PO SCH (08:39)
[2025-04-13] MEDS: Aspirin 81 MG Tab.EC PO SCH (08:39)
[2025-04-13] MEDS: Cyanocobalamin (Vitamin B12) 500 MCG Tab PO SCH (08:39)
[2025-04-13] MEDS: amLODIPine 5 MG Tab PO SCH (08:40)
[2025-04-13] MEDS: Folic Acid 1 MG Tab PO SCH (08:40)
[2025-04-13] MEDS: Lisinopril 20 MG Tab PO SCH (08:40)
== END 2025-04-13 13:05 | DRG 194 ==
LOC: KA.ED 14:49 → KA.MS 15:55
PROVIDERS: ADMIT Family Medicine; ATTEND Family Medicine
DX: J18.9 Pneumonia, unspecified organism (principal); D59.10 Autoimmune hemolytic anemia, unspecified; I10 Essential (primary) hypertension; E87.1 Hypo-osmolality and hyponatremia; H54.7 Unspecified visual loss; I25.10 Atherosclerotic heart disease of native coronary artery without angina pectoris; F03.B0 Unspecified dementia, moderate, without behavioral disturbance, psychotic disturbance, mood disturbance, and anxiety; Z91.018 Allergy to other foods; E78.00 Pure hypercholesterolemia, unspecified; K21.9 Gastro-esophageal reflux disease without esophagitis; I12.9 Hypertensive chronic kidney disease with stage 1 through stage 4 chronic kidney disease, or unspecified chronic kidney disease; N18.31 Chronic kidney disease, stage 3a; M19.90 Unspecified osteoarthritis, unspecified site; Z68.38 Body mass index [BMI] 38.0-38.9, adult; M10.9 Gout, unspecified; M06.9 Rheumatoid arthritis, unspecified; G30.9 Alzheimer's disease, unspecified; F32.A Depression, unspecified; E66.9 Obesity, unspecified; E53.8 Deficiency of other specified B group vitamins; E61.1 Iron deficiency; Z90.49 Acquired absence of other specified parts of digestive tract; Z98.890 Other specified postprocedural states; Z88.8 Allergy status to other drugs, medicaments and biological substances; Z79.899 Other long term (current) drug therapy; Z79.82 Long term (current) use of aspirin; Z95.5 Presence of coronary angioplasty implant and graft; Z68.37 Body mass index [BMI] 37.0-37.9, adult; Z98.49 Cataract extraction status, unspecified eye; Z88.0 Allergy status to penicillin; Z91.040 Latex allergy status
CPT/HCPCS: 36415; 71045; 80048; 80053; 81001; 83880; 84484; 85025; 86140; 93010; 99284; 99285; A9270-GY; J0696; Q3014

== ENCOUNTER 2025-06-17 10:25 | Emergency (ER) | payer MEDICARE ==
[2025-06-17] MEDS ORDERED: Sodium Chloride 0.9% 10 ML Syringe FLUSH PRN (10:34)
[2025-06-17 10:51] LABS: BASOPHILS ABSOLUTE AUTO 0.02 10^3/uL (0.00-0.10); BASOPHILS PERCENT AUTO 0.3 % (0.0-1.0); EOSINOPHILS ABSOLUTE AUTO 0.25 10^3/uL (0.10-0.30); EOSINOPHILS PERCENT AUTO 3.1 % (1.0-3.0); IMMATURE GRAN ABSOLUTE AUTO 0.03 10^3/uL (0.00-0.04); IMMATURE GRAN PERCENT AUTO 0.4 % (0.0-0.4); LYMPHOCYTES ABSOLUTE AUTO 1.00 10^3/uL (1.00-4.00); LYMPHOCYTES PERCENT AUTO 12.5 % (20.0-40.0); MEAN PLATELET VOLUME 10.4 fL (7.4-10.4); MONOCYTES ABSOLUTE AUTO 1.00 10^3/uL (0.10-0.80); MONOCYTES PERCENT AUTO 12.5 % (2.0-8.0); NEUTROPHILS ABSOLUTE AUTO 5.67 10^3/uL (2.50-7.00); NEUTROPHILS PERCENT AUTO 71.2 % (50.0-70.0); PLATELET COUNT,PLT 290 10^3/uL (150-400); RED BLOOD CELL COUNT 3.34 10^6/uL (4.50-6.00); RED CELL DISTRIBUTION WIDTH 14.7 % (11.5-14.5); WHITE BLOOD CELL COUNT,WBC 7.97 10^3/uL (5.00-10.00)
[2025-06-17] MEDS: Alum Hydrox/Mag Hydrox/Simeth 30 ML, Lidocaine 2% 15 ML PO ONE (10:52)
[2025-06-17 11:11] LABS: ALANINE AMINOTRANSFERASE,ALT 27 U/L (14-63); ASPARTATE AMNIOTRANSFERASE,AST 29 U/L (15-37); BILIRUBIN TOTAL 0.4 mg/dL (0.2-1.0); BLOOD UREA NITROGEN,BUN 29 mg/dL (7-18); CARBON DIOXIDE,CO2 25.7 mmol/L (21.0-32.0); CHLORIDE,CL 107 mmol/L (98-107); CREATININE 1.34 mg/dL (0.51-1.17); GLUCOSE RANDOM 89 mg/dL (70-140); POTASSIUM,K 5.2 mmol/L (3.5-5.1); PROTEIN TOTAL,TP 7.2 g/dL (6.4-8.2); SODIUM,NA 144 mmol/L (136-145)
[2025-06-17 11:13] LABS: ESTIMATED GFR 56 mL/min (>=60)
[2025-06-17 11:16] LABS: B-TYPE NATRIURETIC PEPTIDE,BNP 268 pg/mL (0-100)
== END 2025-06-17 13:00 | disposition home or self-care (01) ==
LOC: KA.ED 10:25
DX: K21.9 Gastro-esophageal reflux disease without esophagitis (principal); E78.00 Pure hypercholesterolemia, unspecified; I10 Essential (primary) hypertension; I25.10 Atherosclerotic heart disease of native coronary artery without angina pectoris; E86.0 Dehydration; D64.9 Anemia, unspecified; F03.90 Unspecified dementia, unspecified severity, without behavioral disturbance, psychotic disturbance, mood disturbance, and anxiety; Z91.040 Latex allergy status; Z88.0 Allergy status to penicillin; Z88.8 Allergy status to other drugs, medicaments and biological substances; Z79.899 Other long term (current) drug therapy; Z79.82 Long term (current) use of aspirin
CPT/HCPCS: 71045; 80053; 83880; 84484; 85025; 86140; 93005; 96360; 96374; 99285-25; A9270-GY; J1308; J7030